=== PATIENT | male | born 1990 | race Caucasian/White ===

== ENCOUNTER → 2018-01-20 | Outpatient (CLI) | payer OTHER ==
[~2018-01-20] MED LIST: AUGMENTIN 875 M1 TAB PO; MOTRIN800 MG PO; TOBRADEX T; VICODIN 5/500 505 MG PO
== END | disposition home or self-care (01) ==
LOC: RAD 13:43
DX: R07.89 Other chest pain (principal)

== ENCOUNTER → 2018-03-10 | Outpatient (CLI) | payer OTHER | END | disposition home or self-care (01) | LOC: CT 03-07 11:00 | DX: G44.021 Chronic cluster headache, intractable (principal) ==

== ENCOUNTER 2019-06-20 16:42 | Inpatient (IN) | payer OTHER ==
[~2019-06-20] VITALS: Ht 195.6 cm; Wt 134.8 kg
[2019-06-20 16:46] VITALS: BP 177/88
[2019-06-20 17:21] LABS: HEMATOCRIT 46.9 % (42.0-52.0); HEMOGLOBIN 16.1 g/dl (14.0-18.0); MEAN CELL VOLUME 87.7 fl (80.0-94.0); MEAN CORPUSCULAR HGB 30.1 pg (27.0-31.0); MEAN CORPUSCULAR HGB CONC 34.3 g/dl (33.0-37.0); MEAN PLATELET VOLUME 9.4 fl (9.6-12.3); PLATELET COUNT AUTOMATED 238 10*3/uL (130-400); RED BLOOD COUNT 5.35 10*6/uL (4.50-5.90); RED CELL DISTRI WIDTH 12.1 % (0-14.5)
--- NOTE | 2019-06-20 17:31 | NUR ---
CALLED AND NOTIFIED PHARMACY THAT I HAD TO PULL 2 DOSES OF MORPHINE BECAUSE THE ORDER WAS FOR 4MG I SCANNED BOTH DOSES IN [facility] AND IN ROOM BUT IT ONLY SAID 1 DOSE WAS TAKEN FROM [facility]. IT WILL CREATE DISCREPENCY BUT PHARMACY SAID JUST CLEAR IT AND THEY WILL TAKE CARE OF IT.
[2019-06-20 17:35] LABS: ALBUMIN 4.4 gm/dl (3.1-4.5); ALKALINE PHOSPHATASE 106 U/L (45-117); BUN 11 mg/dl (7-24); CHLORIDE 107 mmol/L (98-107); CREATININE 1.32 mg/dL (0.70-1.30); POTASSIUM 4.1 mmol/L (3.5-5.1); SGOT/AST 16 IU/L (3-35); SGPT/ALT 31 U/L (12-78); SODIUM 139 mmol/L (136-145); TOTAL PROTEIN 8.4 gm/dL (6.4-8.2)
--- NOTE | 2019-06-20 17:37 | NUR ---
pt to ct scan
--- NOTE | 2019-06-20 17:51 | NUR ---
PT RETURNED FROM CT WANTED SOMETHING TO DRINK BUT I ASKED PT TO WAIT TILL WE GET CT RESULTS
[2019-06-20 17:55] LABS: PLATELET SUFFICIENCY NORMAL (NORMAL); TOTAL CELLS COUNTED 100 #CELLS
--- NOTE | 2019-06-20 18:04 | NUR ---
PAIN MEDICATION HAS HELPED WITH THE PAIN CARLEY KYLE NOTIFIED
[2019-06-20 18:38] VITALS: BP 120/70; BP 132/71
--- NOTE | 2019-06-20 18:42 | NUR ---
PT RESTING IN BED VOICES NO COMPLAINTS CALL LIGHT IN REACH PROVIDED WITH WARM BLANKET FAMILY IN ROOM.
--- NOTE | 2019-06-20 18:50 | NUR ---
OK TO GIVE PT SOMETHING TO DRINK PER PA ANABELLA PT IS AWARE
--- NOTE | 2019-06-20 18:50 | NUR ---
PT IS GOING TO BE ADMITTED PT AND FAMILY ARE AWARE
--- NOTE | 2019-06-20 19:00 | NUR ---
REPORT TO [facility] TRANSFERRED
[2019-06-20 19:43] VITALS: BP 154/57
[2019-06-20 20:42] VITALS: BP 163/86
--- NOTE | 2019-06-20 20:42 | NUR ---
A 29, admitted to 4E, under the services of JAYCEE Allison MD with a diagnosis of SEPSIS/ABCESS. Chief complaint is PAIN. Patient arrived via bed from ER. Monitor applied. Initial assessment completed. Vital signs taken and recorded. JAYCEE ALLISON MD notified of admission to the unit. Orders received. See assessment for past medical history, medications and allergies. Patient oriented to unit. Clothing/patient valuable form completed. JAC COOPER
--- NOTE | 2019-06-20 21:20 | NUR ---
PATIENT MEDICATED WITH TYLENOL FOR TYPAMIC TEMP OF 101.0. WILL MONITOR
--- NOTE | 2019-06-20 21:27 | NUR ---
ON FLOOR MADE AWARE OF TYPANIC TEMP OF 101.0F. INFORMED THAT PO TYLENOL GIVEN. INFORMED THAT PATIENT HAD CHILLS AND SHIVERING WHEN BROUGHT TO FLOOR AND IS FLUSHED AND WARM TO TOUCH. STATED OK.
--- NOTE | 2019-06-20 23:00 | NUR ---
PRESENT ON FLOOR. INFORMED THAT SEPSIS BOLUS PROTOCOL CALLS FOR [phone]. STATED THAT WAS OK, TO TURN OFF IF PATIENT STARTS TO SHOW ANY FLUID OVERLOAD.
[2019-06-21] VITALS (9 sets, daily range): BP systolic 125–162; BP diastolic 60–90
--- NOTE | 2019-06-21 | NUR ---
PATIENTS TEMP IS NOW 99.2 TYMPANIC. TYLENOL IS EFFECTIVE AT THIS TIME. WILL CONTINUE TO MONITOR
[2019-06-21 06:18] LABS: ACT PARTIAL THROMBO TIME 31.9 SECONDS (20.0-32.1); BASO % 0.3 % (0.0-1.0); EOS # 0.1 10*3/uL (0.0-0.4); EOS % 0.6 % (1.0-4.0); HEMATOCRIT 42.9 % (42.0-52.0); HEMOGLOBIN 14.6 g/dl (14.0-18.0); INTERNATIONAL NORM RATIO 1.1 (2.0-3.5); LYMPH # 1.9 10*3/uL (1.3-4.4); LYMPH % 13.5 % (27.0-41.0); MEAN CELL VOLUME 86.8 fl (80.0-94.0); MEAN CORPUSCULAR HGB 29.6 pg (27.0-31.0); MEAN PLATELET VOLUME 9.4 fl (9.6-12.3); MONO # 1.2 10*3/uL (0.1-1.0); MONO % 8.6 % (3.0-9.0); NEUT # 10.9 10*3/uL (2.3-7.9); NEUT % 76.6 % (47.0-73.0); PLATELET COUNT AUTOMATED 185 10*3/uL (130-400); RED BLOOD COUNT 4.94 10*6/uL (4.50-5.90); WHITE BLOOD COUNT 14.3 10*3/uL (4.8-10.8)
[2019-06-21 06:25] LABS: BUN 8 mg/dl (7-24); CHLORIDE 107 mmol/L (98-107); CHOLESTEROL 164 mg/dL (<200); CREATININE 1.11 mg/dL (0.70-1.30); FREE T4 1.03 ng/dl (0.76-1.46); HDL CHOLESTEROL 38 mg/dl (40-60); LDL CHOLESTEROL 111 mg/dL (9-159); PHOSPHOROUS 2.6 mg/dL (2.5-4.9); POTASSIUM 3.6 mmol/L (3.5-5.1); SODIUM 137 mmol/L (136-145); TRIGLYCERIDES 77 mg/dl (<150); VLDL CHOLESTEROL 15 mg/dL (6-40)
--- NOTE | 2019-06-21 06:29 | NUR ---
INFORMED OF CONSULT. STATED TO KEEP PATIENT NPO. AWARE OF ELEVATED TEMP AT THIS TIME OF 101.7, STATED NOT TO GIVE PO TYLENOL, NO NEW ORDERS PROVIDED.
--- NOTE | 2019-06-21 06:40 | NUR ---
PATIENT PROVIDED WITH AN ICE/WATER BASIN AND TOWELS. COLD COMPRESSES PROVIDED TO HELP WITH ELEVATED TEMP.
[2019-06-21 07:30] LABS: VITAMIN D, 25-HYDROXY 25.3 ng/mL (30-100)
--- NOTE | 2019-06-21 07:44 | NUR ---
NEWELLDANIELA OLIVER JR [id number] Please refer to the physician's history and physical for past medical history, comorbid conditions, and allergies. Diagnosis: ABSCESS SEPSIS Celestino Score: 22,LOW OR NO RISK WOUND DESCRIPTIONS: Wound Number: 1 Location of the wound: left buttocks Type of wound: abscess Thickness: Size: 6.0cm x 5.0cm x <0.1cm Tunneling: none Undermining: none Sinus Tract: none Presence of Exudate: Amount: None Color: Red Odor: None Periwound Skin Appearance: Erythema Wound edges: closed Pain (associated with wound): tender to touch How does patient state this happened? pt stated this started last week Surface the patient is resting on: Isoflex SKIN PREVENTION RECOMMENDATION: 1. Pressure redistribution support surface as appropriate 2. Elevate heels 3. Remove boots/TEDS every shift and reapply 4. Head of bed 30 degrees as tolerated 5. Assess nutrition and hydration 6. Manage moisture 7. Avoid the use of containment devices while in bed 8. Use absorptive products on surfaces limit layers of linens on bed 9. Turn and reposition every 1-2 hours in bed and every 1 hour in chair as tolerated 10. Weight shifts every 15 minutes while up in chair 11. Offloading with pillows or device to keep heels elevated off bed 12. Monitor skin at least every shift 13. Inspect under medical devices twice a day WOUND TREATMENT RECOMMENDATIONS: Warm compress QID to left buttocks. Await post op order for dressing to left buttocks. Dr. Duncan is already on consult for possible I&D
--- NOTE | 2019-06-21 07:45 | NUR ---
ASSESSMENT AND DOCUMENTATION COMPLETED. PT C/O DISCOMFORT UPON AMBULATION.HE STATES THAT THE ABCESS FEELS BETTER TODAY. TYMPANIC TEMP AT 100.9, HE HAS COOL COMPRESSES FOR COMFORT. DENIES SOB OR CHEST PAINS DEB SPCYDNEYCC
--- NOTE | 2019-06-21 08:20 | NUR ---
PT LYING IN BED ON LEFT SIDE. RESP-EASY AND REGULAR. DENIES NEED FOR PAIN MEDICATION. PT NPO FOR I&D. CALL LIGHT IN REACH. WILL CON'T TO MONITOR.
--- NOTE | 2019-06-21 09:00 | NUR ---
Rn Labor Delivery in to talk to patient. Patient states lives at home with his girlfriend. There are 26 steps in the home. Physician: Dr. Chavis [facility]acy: [facility] Home health services: none Patient's level of ADLs: INDEPENDENT Patient has working utilities: yes DME: none Follow-up physician's appointment after d/c: he prefers to make his own follow up appt after discharge Does patient want to access PORTAL?: no Discharge plan discussed with patient. He lives at home with his girlfriend. He is independent in his ADLs and ambulation. Discussed home health care services and he denies any home needs at this time. When medically stable he will be discharged to home. His mother will provide transportation on discharge. VALERIE SPEARS
--- NOTE | 2019-06-21 09:14 | NUR ---
MEDICATED WITH MORPHINE SLOW IVP ORDERED FOR C/O PAIN DOCUMENTED. RESTING QUIETLY ON LEFT SIDE.
--- NOTE | 2019-06-21 10:15 | NUR ---
TO OR VIA BED WITH OR STAFF. SLIGHT RELIEF OF ACUTE PAIN, BUT SOME DISCOMFORT STILL REMAINS.
--- NOTE | 2019-06-21 12:00 | NUR ---
PT RETURNED FROM OR 115O VIA BED. ASSESSMENT COMPLETED AND DOCUMENTED. PT STATES THAT HE FEELS BETTER, THE PAIN HAS CALMED DOWN. DENIES CHEST PAIN, SOB OR HEADACHES. SURGICAL DRESSING APPEARS TO BE INTACT WITH MINIMAL BRIGHT RED DRAINAGE. SURGICAL DRESSING REINFORCED. PT LAYING COMFORTABLY IN ROOM WITH FAMILY AT BEDSIDE. DEB SPCYDNEYCC
--- NOTE | 2019-06-21 13:25 | NUR ---
PT RESTING IN BED. NO S/S OF DISTRESS. PAIN LEVEL TOLERABLE AT THE MOMENT. PT ORDERED A MEAL, DID NOT EAT. FAMILY WENT TO GET HIM FOOD. HE HAD SOME FLUIDS WITH NO COMPLAINTS. DENIES NAUSEA, DIZZINESS AND SOB. LAMBERTO
--- NOTE | 2019-06-21 15:01 | NUR ---
Nutritional Support Services Note: Dx of abscess left inner buttocks s/p debrtdement and severe sepsis. Ht.6'5 Wt.297# Appetite is normally good for meals. Regular diet as ordered. Pts family has brought in carry out food that pt ate. Stressed importance of eating healthy with adequate protein and calories to promote healing. Pt refused a supplement or other snacks. Will follow as needed. Laurie Lim Rdn Ld
--- NOTE | 2019-06-21 16:00 | NUR ---
RESTING IN BED WITH EYES CLOSED, AWAKENS EASILY. RESP-EASY AND REGULAR. TOLERATING IV ANTIBIOTICS. NO C/O AT THIS TIME. CALL LIGHT IN REACH. SEE SHIFT ASSESSMENT.
--- NOTE | 2019-06-21 20:00 | NUR ---
Hep Lock discontinued RIGHT HAND. Site symptomatic, PAINFUL. Pressure applied. Sterile dressing applied. JAC COOPER
--- NOTE | 2019-06-21 20:05 | NUR ---
IV started right hand with #22 protective cath after 0 attempts. Site prepped with Chloroprep. Sterile dressing applied. Patient tolerated procedure well. JAC COOPER
--- NOTE | 2019-06-21 20:25 | NUR ---
PATIENT MEDICATED WITH MORPHINE FOR C/O 9/10 GLUTEAL PAIN. WILL MONITOR
--- NOTE | 2019-06-21 21:25 | NUR ---
MORPGINE SOMEWHAT EFFECTIVE. PAIN IS 3/10 WILL CALL OUT LATER FOR [place]
--- NOTE | 2019-06-21 22:07 | NUR ---
PATIENT MEDICATED WITH NORCO FOR GLUTEAL PAIN 5/10. WILL MONITOR
--- NOTE | 2019-06-21 22:10 | NUR ---
4X4 TO I&D SITE CHANGED D/T SATURATION OF SEROSANGUINEOUS DRAINAGE. PATIENT HAD SOME PAIN WITH LIFTING BUTTOCK TO REMOVE SATURATED 4X4 GAUZE. NEW GAUZE APPLIED. REDNESS STILL REMAINS AROUND SITE, NO CHANGE. NO ODOR PRSENT
[2019-06-22] VITALS: BP 126/60
--- NOTE | 2019-06-22 02:35 | NUR ---
INFORMED THAT PATIENT HR DROPPED TO 38 FOR A SECOND AND WENT BACK TO 40-50'S SINUS, WHICH HE HAS BEEN. PATIENT IS SLEEPING, ASYMPTOMATIC. STATED OK, CONTINUE TO MONITOR
--- NOTE | 2019-06-22 04:45 | NUR ---
PATIENT MEDICATED WITH MORPHINE FOR C/O GLUTEAL PAIN 12/31. WILL MONITOR
[2019-06-22 06:06] LABS: BUN 9 mg/dl (7-24); CHLORIDE 106 mmol/L (98-107); CREATININE 1.12 mg/dL (0.70-1.30); POTASSIUM 3.6 mmol/L (3.5-5.1); SODIUM 139 mmol/L (136-145)
[2019-06-22 06:08] LABS: BASO # 0.1 10*3/uL (0.0-0.1); BASO % 0.6 % (0.0-1.0); EOS # 0.3 10*3/uL (0.0-0.4); EOS % 3.6 % (1.0-4.0); HEMATOCRIT 42.3 % (42.0-52.0); HEMOGLOBIN 14.1 g/dl (14.0-18.0); LYMPH # 2.4 10*3/uL (1.3-4.4); LYMPH % 27.4 % (27.0-41.0); MEAN CELL VOLUME 88.5 fl (80.0-94.0); MEAN CORPUSCULAR HGB 29.5 pg (27.0-31.0); MEAN CORPUSCULAR HGB CONC 33.3 g/dl (33.0-37.0); MEAN PLATELET VOLUME 9.3 fl (9.6-12.3); MONO # 0.8 10*3/uL (0.1-1.0); MONO % 9.1 % (3.0-9.0); NEUT # 5.1 10*3/uL (2.3-7.9); NEUT % 58.7 % (47.0-73.0); PLATELET COUNT AUTOMATED 183 10*3/uL (130-400); RED BLOOD COUNT 4.78 10*6/uL (4.50-5.90); RED CELL DISTRI WIDTH 11.9 % (0-14.5); WHITE BLOOD COUNT 8.7 10*3/uL (4.8-10.8)
[2019-06-22 08:00] VITALS: BP 122/72
--- NOTE | 2019-06-22 09:00 | NUR ---
Circuit Walker in to see patient. No new needs or request at this time. He denies any home needs. When medically stable he will be discharged to home.
[2019-06-22 12:00] VITALS: BP 138/68
--- NOTE | 2019-06-22 12:21 | NUR ---
NORCO GIVEN FOR C/O GLUTEAL PAIN. RATES 9/10 ON PAIN SCALE. WILL MONITOR.
[2019-06-22] MEDS ORDERED: DOXYCYCLINE100 M3 PO (14:08)
--- NOTE | 2019-06-22 15:44 | NUR ---
Discharge instructions reviewed with patient/family. Patient receptive and verbalizes understanding. Follow-up care arranged. Written instructions given to patient/family. NIKITA SOLARES
== END 2019-06-22 15:44 | disposition home or self-care (01) | DRG 720 ==
LOC: ED 16:42 → EDHOLD 19:03 → 4E 19:03
PROVIDERS: Hospitalist; Internal Medicine; Physician Assistant; ADMIT Internal Medicine
PROC: 0Y910ZZ Drainage of Left Buttock, Open Approach (ICD-10-PCS; principal; 2019-06-21)
DX: A41.9 Sepsis, unspecified organism (principal); R73.9 Hyperglycemia, unspecified; E66.9 Obesity, unspecified; F17.200 Nicotine dependence, unspecified, uncomplicated; E55.9 Vitamin D deficiency, unspecified; E53.8 Deficiency of other specified B group vitamins; L02.31 Cutaneous abscess of buttock; Z71.6 Tobacco abuse counseling; Z68.35 Body mass index [BMI] 35.0-35.9, adult; K61.0 Anal abscess

== ENCOUNTER 2023-03-17 02:24 | Emergency (ER) | payer SELFPAY ==
[~2023-03-17] VITALS: Ht 198.1 cm; Wt 113.4 kg
[~2023-03-17 02:24] MED LIST changes: +DOXYCYCLINE100 M3 PO
[2023-03-17 02:44] LABS: BASO % 0.4 % (0.0-1.0); EOS # 0.2 10*3/uL (0.0-0.4); EOS % 2.1 % (1.0-4.0); HEMATOCRIT 47.2 % (42.0-52.0); LYMPH # 2.6 10*3/uL (1.3-4.4); LYMPH % 26.8 % (27.0-41.0); MEAN CELL VOLUME 90.9 fl (80.0-94.0); MEAN CORPUSCULAR HGB 30.8 pg (27.0-31.0); MEAN CORPUSCULAR HGB CONC 33.9 g/dl (33.0-37.0); MEAN PLATELET VOLUME 9.3 fl (9.6-12.3); MONO # 0.7 10*3/uL (0.1-1.0); MONO % 7.3 % (3.0-9.0); NEUT # 6.1 10*3/uL (2.3-7.9); PLATELET COUNT AUTOMATED 237 10*3/uL (130-400); RED BLOOD COUNT 5.19 10*6/uL (4.50-5.90); RED CELL DISTRI WIDTH 12.3 % (0-14.5); WHITE BLOOD COUNT 9.7 10*3/uL (4.8-10.8)
[2023-03-17 03:05] LABS: ALKALINE PHOSPHATASE 90 U/L (46-116); BUN 14 mg/dl (9-23); CHLORIDE 106 mmol/L (98-107); CPK 134 U/L (34-171); ETHYL ALCOHOL 6.5 mg/dl (<3); LIPASE 26 U/L (12-53); POTASSIUM 3.9 mmol/L (3.4-5.1); SGPT/ALT 11 U/L (5-49); TOTAL PROTEIN 6.9 gm/dL (6.0-8.0)
[2023-03-17 03:43] LABS: BILIRUBIN Negative (Negative); BLOOD Negative (Negative); CLARITY Clear (Clear); COLOR Yellow (Yellow); GLUCOSE Negative (Negative); KETONE Negative (Negative); LEUKO ESTERASE Negative (Negative); NITRITE Negative (Negative); SPECIFIC GRAVITY 1.015 (1.001-1.030); UROBILINOGEN 0.2 E.U./dl (0.0-1.0)
[2023-03-17 03:52] LABS: RBC 0-2 rbc/hpf (0-2); WBC 0-2 wbc/hpf (0-5)
[2023-03-17 03:58] LABS: URINE AMPHETAMINES Negative (1000ng/ml); URINE BARBITURATES Negative (200ng/ml); URINE BENZODIAZEPINES Negative (200ng/ml); URINE CANNABINOIDS (THC) Positive (50ng/ml); URINE COCAINE Negative (300ng/ml); URINE METHADONE Negative (300ng/ml); URINE OPIATES Negative (300ng/ml); URINE PHENCYCLIDINE Negative (25ng/ml)
== END 2023-03-17 15:15 ==
LOC: ED 02:24
PROVIDERS: Internal Medicine
DX: F43.21 Adjustment disorder with depressed mood (principal); Z98.890 Other specified postprocedural states; Z79.899 Other long term (current) drug therapy; F17.290 Nicotine dependence, other tobacco product, uncomplicated

== ENCOUNTER 2024-08-18 11:49 | Emergency (ER) | payer SELFPAY ==
[~2024-08-18] VITALS: Ht 198.1 cm; Wt 113.4 kg
[2024-08-18] MEDS ORDERED: Acetaminophen/Oxycodone 5 MG/325 MG TABLET PO ONE (12:05)
[2024-08-18] MEDS ORDERED: Amoxicillin/Clavulanate Pota 875 MG TAB PO ONE (12:05)
[2024-08-18] MEDS ORDERED: AMOX-CLAV 875-1 EACH PO (12:07)
[2024-08-18] MEDS ORDERED: MELOXICAM15 MG PO (12:07)
== END 2024-08-18 12:15 | disposition home or self-care (01) ==
LOC: ED 11:49
DX: K04.7 Periapical abscess without sinus (principal); F17.210 Nicotine dependence, cigarettes, uncomplicated